=== PATIENT | female | born 1945 | race Hispanic/Latino ===

== ENCOUNTER 2017-10-02 12:19 | Outpatient (CLI) | payer MEDICARE ==
--- NOTE | 2017-10-02 14:31 | XRay Report ---
XRAY CHEST TWO VIEWS: 10/02/17 12:19:00 CLINICAL: Cough. COMPARISON: None FINDINGS: Normal heart and pulmonary vasculature. The lungs are mildly hyperexpanded and hyperlucent. No airspace disease or pleural effusion.Mild anterior wedging of the T9 vertebral body and T9-10 degenerative disc disease. No fracture lines identified. Normal soft tissues. IMPRESSION: COPD.No pneumonia. Chronic mild T9 anterior wedge compression fracture and T9-10 degenerative disc disease.
== END 2017-10-02 12:20 | disposition home or self-care (01) ==
LOC: SPVIMAG 12:19
PROVIDERS: ATTEND Internal Medicine
DX: J44.9 Chronic obstructive pulmonary disease, unspecified (principal); M51.34 Other intervertebral disc degeneration, thoracic region; M48.54XA Collapsed vertebra, not elsewhere classified, thoracic region, initial encounter for fracture
CPT/HCPCS: 71046